=== PATIENT | male | born 1970 | race Caucasian/White ===

== ENCOUNTER 2020-11-24 11:11 | Emergency (ER) | payer OTHER ==
[~2020-11-24] VITALS: Ht 185.4 cm; Wt 86.2 kg
[2020-11-24 11:26] LABS: BASOPHIL 1.2 % (0-2); HCT 47.8 % (42.0-52.0); HGB 16.1 g/dl (13.2-18.0); LYMPHOCYTE 36.5 % (15-48); MCH 31.7 pg (25.0-31.0); MCHC 33.7 g/dL (32.0-36.0); MCV 94.1 fL (78.0-100.0); MONOCYTE 6.5 % (0-12); MPV 10.9 fL (6.0-9.5); NEUTROPHIL 51.3 % (41-80); NRBC 0; PLT 200 K/uL (150-400); RBC 5.08 M/uL (4.70-6.00); RDW 13.2 % (11.5-14.0); WBC 6.6 K/uL (4.0-10.5)
[2020-11-24 11:41] LABS: INR 0.97 (0.9-1.2); PROTHROMBIN TIME 12.3 SECONDS (11.8-13.4); PTT 26.1 SECONDS (24.4-34.7)
[2020-11-24 11:43] LABS: ALBUMIN 3.5 g/dL (3.4-5.0); BILIRUBIN - TOTAL 0.4 mg/dL (0.2-1.0); BUN/CREAT RATIO (CALC) 12.8 RATIO; CREATININE 0.94 mg/dL (0.67-1.17); GLOBULIN (CALCULATION) 3.4 g/dL; POTASSIUM 3.9 mmol/L (3.5-5.1); TOTAL PROTEIN 6.9 g/dL (6.4-8.2)
== END 2020-11-24 11:45 | disposition home or self-care (01) ==
LOC: FER 11:11
PROVIDERS: Emergency Medicine
DX: I21.09 ST elevation (STEMI) myocardial infarction involving other coronary artery of anterior wall (principal); F17.200 Nicotine dependence, unspecified, uncomplicated; Z20.822 Contact with and (suspected) exposure to COVID-19
CPT/HCPCS: 36415; 71045; 80053; 84484; 85025; 85610; 85730; 93005; J2060; J2270; J2405; J2997; J3101; J7030; U0002